=== PATIENT | male | born 1990 | race Caucasian/White ===

== ENCOUNTER 2017-11-22 20:50 | Emergency (ER) | payer OTHER ==
[~2017-11-22] VITALS: Ht 177.8 cm; Wt 77.3 kg
[2017-11-22 20:54] VITALS: BP 118/70
[2017-11-22] MEDS ORDERED: LIDOCAINE-MPF 2% ,5ML ONE (23:09)
[2017-11-22] MEDS ORDERED: BACITRACIN ZINC OINT 500U/GM, 0.9 GM ONE (23:10)
[2017-11-22] MEDS ORDERED: LIDOCAINE 2%, 20ML INFIL ONE (23:30)
== END 2017-11-23 01:25 | disposition home or self-care (01) ==
LOC: ED 23:59
DX: S91.312A Laceration without foreign body, left foot, initial encounter (principal); W20.8XXA Other cause of strike by thrown, projected or falling object, initial encounter; Y92.481 Parking lot as the place of occurrence of the external cause; Y93.89 Activity, other specified; Y99.8 Other external cause status
CPT/HCPCS: 12002; 99284